=== PATIENT | male | born 1970 | race Caucasian/White ===

== ENCOUNTER 2021-01-11 12:46 | Observation (INO) ==
[2021-01-11] MEDS ORDERED: Acetaminophen 325 MG TABLET PO PRN (21:01)
[2021-01-11] MEDS ORDERED: Melatonin 3 MG TABLET PO PRN (21:01)
[2021-01-11] MEDS ORDERED: Naloxone 0.4 MG/ML INJ IVP PRN (21:01)
[2021-01-11] MEDS ORDERED: Ondansetron 4 MG/2 ML VIAL IVP PRN (21:01)
[2021-01-11] MEDS ORDERED: 0.9 % Sodium Chloride 1,000 ML IVC ONE (21:06)
[2021-01-11] MEDS ORDERED: Perflutren Lipid Microsphere 1.3 ML in 0.9 % Sodium Chloride 8.7 ML IVP PRN (21:30)
[2021-01-11 22:11] LABS: INR 1.4; Prothrombin Time 16.4 Seconds (9.4-12.1)
[2021-01-11] MEDS ORDERED: *HR* Heparin 5,000 UNIT/ML VIAL IVP ONE (22:44)
[2021-01-11] MEDS ORDERED: *HR* Heparin 5,000 UNIT/ML VIAL IVP PRN ×2 (22:44)
[2021-01-11] MEDS: Heparin 25,000UNIT/250ML 1/2NS 25,000 UNIT/250 ML IV.SOLN IVC SCH (23:06)
[2021-01-11 23:35] LABS: Hematocrit 41.6 % (37.5-50.1); Hemoglobin 13.5 g/dL (12.9-16.9); Mean Corpuscular HGB Conc 32.5 g/dL (31.6-35.5); Mean Corpuscular Hemoglobin 30.1 pg (28.0-33.3); Mean Corpuscular Volume 92.9 fL (83.0-100.0); Mean Platelet Volume 11.1 fL (9.4-12.4); Platelet Count 172 K/mcL (140-400); Red Blood Count 4.48 M/mcL (4.19-5.50); Red Cell Distribution Width 13.7 % (11.5-14.5); White Blood Count 9.9 K/mcL (4.3-11.1)
[2021-01-12] MEDS ORDERED: Potassium Chloride 40 MEQ, Lidocaine 1% 2 ML in 0.9 % Sodium Chloride 500 ML IVPB ONE (00:14)
[2021-01-12 06:07] LABS: Basophils # 0.1 K/mcL (0.0-0.2); Basophils % 0.6 %; Eosinophils # 0.2 K/mcL (0.0-0.6); Eosinophils % 2.2 %; Hematocrit 39.1 % (37.5-50.1); Hemoglobin 13.1 g/dL (12.9-16.9); Immature Granulocytes % 0.2 % (0-4); Lymphocytes # 1.8 K/mcL (0.6-4.6); Lymphocytes % 21.4 %; Mean Corpuscular HGB Conc 33.5 g/dL (31.6-35.5); Mean Corpuscular Volume 92.4 fL (83.0-100.0); Mean Platelet Volume 11.5 fL (9.4-12.4); Monocytes # 0.8 K/mcL (0.0-1.3); Monocytes % 9.6 %; Neutrophils # 5.6 K/mcL (1.6-8.9); Platelet Count 156 K/mcL (140-400); Red Blood Count 4.23 M/mcL (4.19-5.50); Red Cell Distribution Width 13.8 % (11.5-14.5); White Blood Count 8.5 K/mcL (4.3-11.1)
[2021-01-12 06:12] LABS: INR 1.6; Prothrombin Time 17.9 Seconds (9.4-12.1)
[2021-01-12 06:28] LABS: Chol/HDL Ratio 2.9 (0-4.9)
[2021-01-12 06:32] LABS: Alanine Aminotransferase 27 Units/L (7-52); Albumin 3.4 g/dL (3.5-5.7); Albumin/Globulin Ratio 1.4 (1.1-2.2); Alkaline Phosphatase 54 Units/L (34-104); Aspartate Amino Transferase 35 Units/L (13-39); BUN/Creatinine Ratio 12 (6-26); Bilirubin,Total 0.8 mg/dL (0.3-1.0); Blood Urea Nitrogen 13 mg/dL (6-20); Calcium 8.3 mg/dL (8.6-10.3); Carbon Dioxide 24 mEq/L (23-29); Chloride 110 mEq/L (98-107); Globulin 2.4 g/dL (2.4-3.5); Glucose 91 mg/dL (70-105); Magnesium 1.9 mg/dL (1.6-2.6); Osmolality,Calculated 292 (280-300); Phosphorous 2.7 mg/dL (2.7-4.5); Potassium 4.1 mEq/L (3.5-5.1); Sodium 141 mEq/L (136-145); Total Protein 5.8 g/dL (6.4-8.9); Troponin I 0.04 ng/mL (< 0.04); eGFR For African Americans > 60 (> 60); eGFR For Non-African Americans > 60 (> 60)
[2021-01-12] MEDS ORDERED: tiZANidine 4 MG TABLET PO PRN (11:53)
[2021-01-12 12:09] LABS: Estimated Average Glucose 103 mg/dl; Hemoglobin A1C 5.2 %
[2021-01-12] MEDS: Aspirin 81 MG TAB.CHEW PO SCH (12:13)
[2021-01-12] MEDS: Heparin 25,000UNIT/250ML 1/2NS 25,000 UNIT/250 ML IV.SOLN IVC SCH (16:07)
[2021-01-12] MEDS ORDERED: *HR* Warfarin 2.5 MG TABLET PO ONE (18:00)
[2021-01-12] MEDS ORDERED: Warfarin perPT PO PRN (18:00)
[2021-01-12] MEDS: Pregabalin 50 MG CAPSULE PO SCH (19:40)
[2021-01-13 04:07] LABS: Basophils # 0.1 K/mcL (0.0-0.2); Basophils % 0.7 %; Eosinophils # 0.2 K/mcL (0.0-0.6); Eosinophils % 2.1 %; Hematocrit 40.9 % (37.5-50.1); Hemoglobin 13.1 g/dL (12.9-16.9); Immature Granulocytes % 0.5 % (0-4); Lymphocytes # 2.2 K/mcL (0.6-4.6); Lymphocytes % 22.1 %; Mean Corpuscular Volume 93.6 fL (83.0-100.0); Mean Platelet Volume 11.1 fL (9.4-12.4); Monocytes # 0.8 K/mcL (0.0-1.3); Monocytes % 7.7 %; Neutrophils # 6.8 K/mcL (1.6-8.9); Platelet Count 168 K/mcL (140-400); Red Blood Count 4.37 M/mcL (4.19-5.50); Red Cell Distribution Width 13.7 % (11.5-14.5); Segmented Neutrophils % 66.9 %; White Blood Count 10.1 K/mcL (4.3-11.1)
[2021-01-13 04:13] LABS: INR 1.6; Prothrombin Time 18.5 Seconds (9.4-12.1)
[2021-01-13 04:24] LABS: BUN/Creatinine Ratio 15 (6-26); Blood Urea Nitrogen 14 mg/dL (6-20); Calcium 8.6 mg/dL (8.6-10.3); Carbon Dioxide 24 mEq/L (23-29); Chloride 107 mEq/L (98-107); Glucose 87 mg/dL (70-105); Osmolality,Calculated 290 (280-300); Potassium 4.2 mEq/L (3.5-5.1); Sodium 140 mEq/L (136-145); eGFR For African Americans > 60 (> 60); eGFR For Non-African Americans > 60 (> 60)
[2021-01-13] MEDS: Aspirin 81 MG TAB.CHEW PO SCH (08:52)
[2021-01-13] MEDS: Pregabalin 50 MG CAPSULE PO SCH ×2 (08:52→20:32)
[2021-01-13] MEDS: Heparin 25,000UNIT/250ML 1/2NS 25,000 UNIT/250 ML IV.SOLN IVC SCH (14:20)
[2021-01-13] MEDS ORDERED: Isovue-370 500 ML BOTTLE IVP ONE (15:19)
[2021-01-13] MEDS ORDERED: *HR* Warfarin 5 MG TABLET PO ONE (18:00)
[2021-01-14 04:52] LABS: INR 1.5; Prothrombin Time 17.4 Seconds (9.4-12.1)
[2021-01-14] MEDS: Pregabalin 50 MG CAPSULE PO SCH (07:33)
[2021-01-14] MEDS: Aspirin 81 MG TAB.CHEW PO SCH (07:34)
[2021-01-14 10:35] VITALS: BP 121/75
[2021-01-14] MEDS ORDERED: *HR* Warfarin 5 MG TABLET PO ONE (18:00)
== END 2021-01-14 17:03 | disposition home health service (06) ==
LOC: 3BNU → SUATTDRO 20:30
PROVIDERS: ADMIT Internal Medicine; ATTEND Registered Nurse

== ENCOUNTER 2021-04-03 12:52 | Inpatient (IN) ==
[2021-04-03 14:03] LABS: Hematocrit 44.6 % (37.5-50.1); Hemoglobin 14.9 g/dL (12.9-16.9); Mean Corpuscular HGB Conc 33.4 g/dL (31.6-35.5); Mean Corpuscular Hemoglobin 30.3 pg (28.0-33.3); Mean Corpuscular Volume 90.7 fL (83.0-100.0); Mean Platelet Volume 11.8 fL (9.4-12.4); Platelet Count 178 K/mcL (140-400); Red Blood Count 4.92 M/mcL (4.19-5.50); Red Cell Distribution Width 13.8 % (11.5-14.5); White Blood Count 11.4 K/mcL (4.3-11.1)
[2021-04-03 14:13] LABS: Bilirubin,Urine Negative (Negative); Blood,Urine Negative (Negative); Clarity,Urine Clear (Clear); Color,Urine Yellow (Yellow); Glucose,Urine (UA) Normal (Normal); Ketones,Urine 10 mg/dL (Negative); Leukocyte Esterase,Urine Negative (Negative); Mucus,Urine Few per lpf (None-Few); Nitrite,Urine Negative (Negative); Protein,Urine 50 mg/dL (Neg-Trace); Specific Gravity,Urine > 1.030 (1.010-1.025); Squamous Epithelial Cell,Urine Few per hpf (None-Few); WBC,Urine 0-3 per hpf (0-3)
[2021-04-03 14:25] LABS: BUN/Creatinine Ratio 13 (6-26); Blood Urea Nitrogen 13 mg/dL (6-20); Calcium 9.3 mg/dL (8.6-10.3); Carbon Dioxide 25 mEq/L (23-29); Chloride 104 mEq/L (98-107); Glucose 110 mg/dL (70-105); Osmolality,Calculated 289 (280-300); Potassium 3.7 mEq/L (3.5-5.1); Sodium 139 mEq/L (136-145); Troponin I 0.03 ng/mL (< 0.04); eGFR For African Americans > 60 (> 60); eGFR For Non-African Americans > 60 (> 60)
[2021-04-03 14:39] LABS: Amphetamine Screen,Urine Negative ng/mL (Cutoff=1000); Barbiturate Screen,Urine Negative ng/mL (Cutoff=200); Benzodiazepines Screen,Urine Negative ng/mL (Cutoff=200); Cannabinoid Screen,Urine Positive ng/mL (Cutoff = 50); Cocaine Screen,Urine Negative ng/mL (Cutoff= 300); Opiate Screen,Urine Negative ng/mL (Cutoff=300); Phencyclidine Screen,Urine Negative ng/mL (Cutoff=25)
[2021-04-03 16:19] LABS: Ethanol < 10 mg/dL (Less than 10)
[2021-04-03 21:09] LABS: INR 1.7; Prothrombin Time 19.4 Seconds (9.4-12.1)
[2021-04-03 21:42] LABS: Influenza A PCR Negative (Negative); Influenza B PCR Negative (Negative); Resp. Syncytial Virus PCR Negative (Negative)
[2021-04-03 21:46] LABS: SARS-CoV-2 by PCR (In House) Negative (Negative)
[2021-04-03] MEDS ORDERED: Haloperidol Lactate 5 MG/ML VIAL IM PRN (22:29)
[2021-04-03] MEDS ORDERED: traZODone 50 MG TABLET PO PRN (22:29)
[2021-04-03] MEDS ORDERED: *HR* LORazepam 2 MG/ML VIAL IM PRN (22:29)
[2021-04-03] MEDS ORDERED: *HR* LORazepam 1 MG TABLET PO PRN (22:29)
[2021-04-03] MEDS ORDERED: haloperidoL 5 MG TABLET PO PRN (22:29)
[2021-04-04] MEDS ORDERED: Mag Hydrox/Al Hydrox/Simeth 30 ML UDC PO PRN (13:03)
[2021-04-04] MEDS ORDERED: MOM Conc 10 ML UD.LIQ PO PRN (13:03)
[2021-04-04] MEDS: hydrOXYzine pamoate 25 MG CAPSULE PO PRN (20:42)
[2021-04-04] MEDS: risperiDONE 1 MG TABLET PO SCH (20:42)
[2021-04-04] MEDS: *HR* Warfarin 2.5 MG TABLET PO SCH (20:43)
[2021-04-04] MEDS: Acetaminophen 325 MG TABLET PO PRN (22:38)
[2021-04-05] MEDS: *HR* Warfarin 2.5 MG TABLET PO SCH (17:21)
[2021-04-05] MEDS: risperiDONE 1 MG TABLET PO SCH (20:06)
[2021-04-05] MEDS: hydrOXYzine pamoate 25 MG CAPSULE PO PRN (20:06)
[2021-04-06] MEDS: hydrOXYzine pamoate 25 MG CAPSULE PO PRN ×2 (00:02→21:10)
[2021-04-06] MEDS: Nicotine 7 MG PATCH.TD24 TD SCH (08:56)
[2021-04-06] MEDS: *HR* Warfarin 2.5 MG TABLET PO SCH (17:09)
[2021-04-06] MEDS ORDERED: *HR* Warfarin 2.5 MG TABLET PO ONE (18:00)
[2021-04-06] MEDS: risperiDONE 1 MG TABLET PO SCH (21:10)
[2021-04-06] MEDS: QUEtiapine Fumarate 25 MG TABLET PO PRN (21:10)
[2021-04-07] MEDS: Nicotine 7 MG PATCH.TD24 TD SCH (08:14)
[2021-04-07] MEDS ORDERED: Clotrimazole 1% CRM 15 GM TUBE TP SCH (11:15)
[2021-04-07] MEDS: *HR* Warfarin 2.5 MG TABLET PO SCH (17:05)
[2021-04-07] MEDS: QUEtiapine Fumarate 25 MG TABLET PO PRN (20:56)
[2021-04-07] MEDS: risperiDONE 1 MG TABLET PO SCH (20:56)
[2021-04-08] MEDS: Nicotine 7 MG PATCH.TD24 TD SCH (08:38)
[2021-04-08] MEDS: risperiDONE 1 MG TABLET PO SCH ×2 (11:06→20:18)
[2021-04-08 13:42] LABS: Basophils # 0.1 K/mcL (0.0-0.2); Basophils % 0.6 %; Eosinophils # 0.2 K/mcL (0.0-0.6); Eosinophils % 2.3 %; Hematocrit 44.7 % (37.5-50.1); Hemoglobin 14.6 g/dL (12.9-16.9); Immature Granulocytes % 0.4 % (0-4); Lymphocytes # 1.6 K/mcL (0.6-4.6); Lymphocytes % 18.2 %; Mean Corpuscular HGB Conc 32.7 g/dL (31.6-35.5); Mean Corpuscular Hemoglobin 30.6 pg (28.0-33.3); Mean Corpuscular Volume 93.7 fL (83.0-100.0); Monocytes # 0.6 K/mcL (0.0-1.3); Monocytes % 6.7 %; Neutrophils # 6.1 K/mcL (1.6-8.9); Platelet Count 189 K/mcL (140-400); Red Blood Count 4.77 M/mcL (4.19-5.50); Segmented Neutrophils % 71.8 %; White Blood Count 8.5 K/mcL (4.3-11.1)
[2021-04-08 13:58] LABS: INR 1.3; Prothrombin Time 14.3 Seconds (9.4-12.1)
[2021-04-08 14:11] LABS: Alanine Aminotransferase 36 Units/L (7-52); Albumin 4.2 g/dL (3.5-5.7); Albumin/Globulin Ratio 1.5 (1.1-2.2); Alkaline Phosphatase 69 Units/L (34-104); Aspartate Amino Transferase 23 Units/L (13-39); BUN/Creatinine Ratio 16 (6-26); Bilirubin,Total 0.3 mg/dL (0.3-1.0); Blood Urea Nitrogen 16 mg/dL (6-20); Calcium 9.4 mg/dL (8.6-10.3); Carbon Dioxide 29 mEq/L (23-29); Chloride 101 mEq/L (98-107); Globulin 2.8 g/dL (2.4-3.5); Glucose 103 mg/dL (70-105); Osmolality,Calculated 281 (280-300); Potassium 4.4 mEq/L (3.5-5.1); Sodium 135 mEq/L (136-145); eGFR For African Americans > 60 (> 60); eGFR For Non-African Americans > 60 (> 60)
[2021-04-08] MEDS: *HR* Warfarin 2.5 MG TABLET PO SCH (18:10)
[2021-04-08] MEDS: QUEtiapine Fumarate 25 MG TABLET PO PRN (20:18)
[2021-04-09] MEDS: risperiDONE 1 MG TABLET PO SCH ×2 (08:42→20:48)
[2021-04-09] MEDS: Nicotine 7 MG PATCH.TD24 TD SCH (08:42)
[2021-04-09] MEDS: *HR* Warfarin 2.5 MG TABLET PO SCH (17:51)
[2021-04-09] MEDS ORDERED: *HR* Warfarin 2.5 MG TABLET PO ONE (18:00)
[2021-04-09] MEDS: QUEtiapine Fumarate 25 MG TABLET PO PRN (20:48)
[2021-04-09] MEDS: Acetaminophen 325 MG TABLET PO PRN (20:48)
[2021-04-10 08:41] VITALS: BP 142/97; PULSE 109; TEMP 98.2; O2SAT 100
[2021-04-10] MEDS: risperiDONE 1 MG TABLET PO SCH (08:54)
[2021-04-10] MEDS: Nicotine 7 MG PATCH.TD24 TD SCH (08:54)
[2021-04-10] MEDS ORDERED: Furosemide 40 MG TABLET PO SCH (11:15)
[2021-04-10] MEDS ORDERED: Aspirin 81 MG TAB.CHEW PO SCH (11:15)
[2021-04-10] MEDS: *HR* Warfarin 2.5 MG TABLET PO SCH (17:03)
== END 2021-04-10 17:10 | disposition home or self-care (01) | DRG 753 ==
LOC: EMEROOARM 12:52 → 1ANU 22:22
PROVIDERS: ADMIT Psychiatry & Neurology Psychiatry; ATTEND Psychiatry & Neurology Psychiatry